=== PATIENT | female | born 1975 | race Caucasian/White ===

== ENCOUNTER → 2019-07-22 | Outpatient (CLI) | payer BC ==
[2019-07-22 16:10] VITALS: PULSE 105; TEMP 98.6; BMI 41.5
[2019-07-22 16:31] VITALS: BP 134/89
--- NOTE | 2019-07-22 16:45 | P.HPBAR ---
Bariatric H&P - History & Physicial H&P Date: 07/22/19 History & Physicial: Visit/CC: band adjustment Patient initial contact: Initial weight: 125.191 kg Initial weight in pounds: 276.00 Height: 5 ft 5 in Initial BMI: 45.9 Last weight: Current weight: 113.398 kg Current weight in pounds: 250.00 Current BMI: 41.5 [place] body weight (based on NIH guidelines): 56.699 kg Excess body weight loss: 17.2% The patient is a 43 year-old F who presents for Bariatric Assessment. Patient presents today for her LAP-BAND adjustment. She's had some dysphagia. Past Medical History Past Medical History: GERD/Reflux, Thyroid Disorder Additional Past Medical History / Comment(s): hypothyroidism (takes synthroid daily), History of Any Multi-Drug Resistant Organisms: None Reported Past Surgical History: Bariatric Surgery, Section, Cholecystectomy, Hysterectomy, Tonsillectomy Additional Past Surgical History / Comment(s): lap band 2007, Partial 2017 (bilateral ovaries retained), tonsillectomy 2013, bilateral varicose vein ablation and scleropathy, x1, Past Anesthesia/Blood Transfusion Reactions: No Reported Reaction Additional Past Anesthesia/Blood Transfusion Reaction / Comm: No blood transfusion to date Smoking Status: Never smoker Surgical - Exam Vital Signs Temp Pulse BP 98.6 F 105 H 154/89 07/22/19 15:59 07/22/19 15:59 07/22/19 15:59 - General well developed, well nourished, no distress - Eyes PERRL - Abdomen Abdomen: soft, non tender Bariatric Assessment & Plan Plan: Patient's lap band was emptied. She had 2.5 mL in her band. She currently has 0 mL in the band. She'll follow-up in 4 weeks. Bariatric Checklist Checklist: Plan: Checklist: EGD: 1. Hiatal hernia: 2. H. Pylori: HgbA1c: Vitamin D: Smoking: Never smoker Primary care physician referral: Dr. María Way ([place]) Psychiatry clearance: Cardiology clearance: Sleep study: Diet journal: VTE risk score: VTE risk level: Rehab needs at discharge:
== END ==
LOC: BARWHC3 15:42
PROVIDERS: ATTEND Surgery
DX: Z46.51 Encounter for fitting and adjustment of gastric lap band (principal); Z87.891 Personal history of nicotine dependence; Z98.84 Bariatric surgery status; Z90.49 Acquired absence of other specified parts of digestive tract; Z90.89 Acquired absence of other organs
CPT/HCPCS: 99202

== ENCOUNTER → 2021-03-15 | Outpatient (CLI) | payer BC ==
[2021-03-15 15:05] VITALS: BP 125/87; PULSE 88; TEMP 98; BMI 45.2
--- NOTE | 2021-03-16 11:28 | P.HPBAR ---
Bariatric H&P - History & Physicial H&P Date: 03/15/21 History & Physicial: Visit/CC: lap band follow up Patient initial contact: Initial weight: 125.191 kg Initial weight in pounds: 276.00 Height: 5 ft 5 in Initial BMI: 45.9 Last weight: Current weight: 123.377 kg Current weight in pounds: 272.00 Current BMI: 45.2 [place] body weight (based on NIH guidelines): 56.699 kg Excess body weight loss: 2.6% The patient is a 45 year-old F who presents for Bariatric Assessment. Patient presents today for laparoscopic band follow up. She's had chronic issues with dysphagia. She wishes to have her LAP-BAND removed. She has not been seen several years. Past Medical History Past Medical History: GERD/Reflux, Thyroid Disorder Additional Past Medical History / Comment(s): hypothyroidism (takes synthroid daily), History of Any Multi-Drug Resistant Organisms: None Reported Past Surgical History: Bariatric Surgery, Section, Cholecystectomy, Hysterectomy, Tonsillectomy Additional Past Surgical History / Comment(s): lap band 2007, Partial 2017 (bilateral ovaries retained), tonsillectomy 2013, bilateral varicose vein ablation and scleropathy, x1, Past Anesthesia/Blood Transfusion Reactions: No Reported Reaction Additional Past Anesthesia/Blood Transfusion Reaction / Comm: No blood transfusion to date Past Psychological History: Anxiety, Depression Additional Psychological History / Comment(s): Takes Cymbalta 30 mg daily Smoking Status: Never smoker Past Alcohol Use History: Rare Past Drug Use History: None Reported Surgical - Exam Vital Signs Temp Pulse BP 98 F 88 125/87 03/15/21 15:00 03/15/21 15:00 03/15/21 15:00 - General well developed, well nourished, no distress - Eyes PERRL - ENT normal pinna - Neck no masses - Respiratory normal expansion - Cardiovascular Rhythm: regular - Abdomen Abdomen: soft, non tender Bariatric Assessment & Plan Plan: Chronic dysphagia due to LAP-BAND. Patient will have her LAP-BAND system removal. The patient does not wish to convert sleeve gastrectomy this time. Bariatric Checklist Checklist: Plan: Checklist: EGD: 1. Hiatal hernia: 2. H. Pylori: HgbA1c: Vitamin D: Smoking: Never smoker Primary care physician referral: Dr. María Way ([place]) Psychiatry clearance: Cardiology clearance: Sleep study: Diet journal: VTE risk score: VTE risk level: Rehab needs at discharge:
== END ==
LOC: BARWHC3 14:22
PROVIDERS: ATTEND Surgery
DX: Z09 Encounter for follow-up examination after completed treatment for conditions other than malignant neoplasm (principal); R13.10 Dysphagia, unspecified; E03.8 Other specified hypothyroidism; Z98.84 Bariatric surgery status; F41.9 Anxiety disorder, unspecified; F32.9 Major depressive disorder, single episode, unspecified
CPT/HCPCS: 99211

== ENCOUNTER 2021-03-31 08:27 | Day surgery (SDC) | payer BC ==
[2021-03-30 11:02] VITALS: BMI 43.2
[~2021-03-31 08:27] MED LIST: DEXAMETHASONE SOD PHOSPHATE 4 MG/ML 1 ML VIAL IV ONE; HYDROmorphone 0.5 MG/0.5 ML SYRINGE IVP PRN; LACTATED RINGERS 1,000 ML IV SCH; LIDOCAINE 1% (10MG/ML) FOR IV START INTRADERMA PRN; MIDAZOLAM 2 MG/2 ML VIAL IV PRN; ONDANSETRON 4 MG/2 ML VIAL IVP PRN
[2021-03-31] MEDS ORDERED: SCOPOLAMINE 1.5MG/72HR PATCH TRANSDERM ONE (11:01)
[2021-03-31] MEDS ORDERED: SUCCINYLCHOLINE CHLORIDE 100 MG/5 ML SYR IV ONE (11:59)
[2021-03-31] MEDS ORDERED: ePHEDrine SULFATE/0.9% NACL/PF 50 MG/5 ML SYRINGE IV ONE (11:59)
[2021-03-31] MEDS ORDERED: ROCURONIUM 10 MG/ML (5 ML VIAL) IV ONE (11:59)
[2021-03-31] MEDS ORDERED: MIDAZOLAM 2 MG/2 ML VIAL ONE (11:59)
[2021-03-31] MEDS ORDERED: LIDOCAINE 1% INJ 10MG/ML (20 ML MDV) ONE (11:59)
[2021-03-31] MEDS ORDERED: fentaNYL (PF) 50 MCG/ML 2 ML AMP ONE (11:59)
[2021-03-31] MEDS ORDERED: NEOSTIGMINE 1 MG/ML 10 ML VIAL ONE (11:59)
[2021-03-31] MEDS ORDERED: GLYCOPYRROLATE 0.2 MG/ML 2 ML VIAL ONE (11:59)
[2021-03-31] MEDS ORDERED: PROPOFOL 10 MG/ML 20 ML VIAL IV ONE (11:59)
[2021-03-31] MEDS ORDERED: SODIUM CHLORIDE 0.9% 100 ML with ceFAZolin 3,000 MG IV ONE ×2 (12:02)
[2021-03-31] MEDS ORDERED: BUPIVACAIN-EPI 0.5%-1:200,000 30 ML VIAL SQ ONE (12:30)
--- NOTE | 2021-03-31 13:03 | P.GSHP ---
History of Present Illness H&P Date: 03/31/21 Chief Complaint: Dysphagia, morbid obesity Is a 45-year-old female is a the LAP-BAND. She's had issues with GERD and dysphagia. She is morbidly obese. Her BMI is 45. She presents today for removal of LAP-BAND system. Past Medical History Past Medical History: GERD/Reflux, Thyroid Disorder Additional Past Medical History / Comment(s): hypothyroidism (takes synthroid daily), History of Any Multi-Drug Resistant Organisms: None Reported Past Surgical History: Bariatric Surgery, Section, Cholecystectomy, Hysterectomy, Tonsillectomy Additional Past Surgical History / Comment(s): lap band 2007, Partial 2017 (bilateral ovaries retained), tonsillectomy 2013, bilateral varicose vein ablation and scleropathy, x1, Past Anesthesia/Blood Transfusion Reactions: No Reported Reaction Additional Past Anesthesia/Blood Transfusion Reaction / Comment(s): No blood transfusion to date Smoking Status: Never smoker - Past Family History Mother Family Medical History: Cancer Sister(s) Family Medical History: Cancer Medications and Allergies Home Medications Medication Instructions Recorded Confirmed Type DULoxetine HCL [Cymbalta] 30 mg PO DAILY 07/22/19 03/31/21 History Levothyroxine Sodium [Synthroid] 25 mcg PO DAILY 07/22/19 03/31/21 History Allergies Allergy/AdvReac Type Severity Reaction Status Date / Time Penicillins Allergy Severe Rash/Hives Verified 03/31/21 10:47 Surgical - Exam Vital Signs Temp Pulse Resp BP Pulse Ox 97.1 F L 91 18 121/79 98 03/31/21 10:43 03/31/21 10:43 03/31/21 10:43 03/31/21 10:43 03/31/21 10:43 - General well developed, well nourished, no distress - Eyes PERRL - ENT normal pinna - Neck no masses - Respiratory normal expansion - Cardiovascular Rhythm: regular - Abdomen Abdomen: soft, non tender Assessment and Plan Assessment: Morbid obesity, dysphagia. We'll perform removal of LAP-BAND system
--- NOTE | 2021-03-31 13:05 | P.OP ---
Date of Procedure: 03/31/21 Preoperative Diagnosis: Dysphagia Morbid obesity Postoperative Diagnosis: Dysphagia, morbid obesity Procedure(s) Performed: Laparoscopic removal of LAP-BAND system Anesthesia: WADE Surgeon: Bo Whitaker Estimated Blood Loss (ml): 5 Pathology: none sent Condition: stable Disposition: PACU Description of Procedure: The patient's placed on the operative table in the supine position. She was then placed in dorsal lithotomy. She received general anesthesia. Her abdomen was prepped and draped usual fashion. The skin was incised LAP-BAND port site and using left cautery and blunt sharp dissection the LAP-BAND port was dissected free. The port was removed. Next a 5 mm trochars placed into the. Cavity under direct vision. The abdomen was insufflated after adequate insufflation the laparoscope was placed in [place] cavity. Next a 5 atrocious with right epigastric right lateral and left lateral position. A 15 mm trocar replaced initial fibrillar trocar and then a another 5 mm trochars placed in the left periumbilical area. The adhesions to the LAP-BAND device were lysed using left cautery. Lap band buckle was then cut and the LAP-BAND was withdrawn from around stomach. The LAP-BAND was extracted through the 15 mm trocar site. There is no bleeding seen. The trochars withdrawn. The skin was closed interrupted 3-0 Monocryl suture. Dermabond was applied. Patient top she will was sent to recovery in stable condition.
[2021-03-31 13:14] VITALS: TEMP 98.4
[2021-03-31] MEDS ORDERED: KETOROLAC 15 MG/ML 1 ML VIAL IVP ONE (13:30)
[2021-03-31] MEDS ORDERED: ONDANSETRON 4 MG/2 ML VIAL IVP ONE (13:31)
[2021-03-31 14:40] VITALS: BP 118/81; PULSE 95; RESP 16
== END 2021-03-31 14:59 | disposition home or self-care (01) ==
LOC: OR 08:27
PROVIDERS: ATTEND Surgery
DX: Z46.89 Encounter for fitting and adjustment of other specified devices (principal); R13.10 Dysphagia, unspecified; K21.9 Gastro-esophageal reflux disease without esophagitis; E03.9 Hypothyroidism, unspecified; E66.01 Morbid (severe) obesity due to excess calories; Z68.42 Body mass index [BMI] 45.0-49.9, adult; Z98.891 History of uterine scar from previous surgery; Z90.49 Acquired absence of other specified parts of digestive tract; Z90.710 Acquired absence of both cervix and uterus; Z90.89 Acquired absence of other organs; Z98.890 Other specified postprocedural states; Z80.9 Family history of malignant neoplasm, unspecified; Z79.890 Hormone replacement therapy; Z79.899 Other long term (current) drug therapy; Z88.0 Allergy status to penicillin
CPT/HCPCS: 43774; J2250; J1100; J2710; J2405; J0690; J2001; J3010; J1885; J0330; J2704; J1170